=== PATIENT | female | born 1965 | race Two or more races ===

== ENCOUNTER 2020-07-18 21:57 | Emergency (ER) | payer OTHER ==
[~2020-07-18] VITALS: Ht 157.5 cm; Wt 57.0 kg
[2020-07-18 22:27] VITALS: BP 150/80
--- NOTE | 2020-07-18 22:30 | NUR ---
Provider at bedside to discuss POC
--- NOTE | 2020-07-18 22:38 | NUR ---
Pt arrived with complaints of lower ab pain, foul smelling urine, and buring with urniation. Pt ambulatory with steay gait to bathroom for UA, UA clear with strong oder. Family member at bedside, pt connected to BP and O2 monitiors, SHAGUFTA RANDALL.
[2020-07-18 22:39] LABS: MICROSCOPIC NOT IND
== END 2020-07-18 23:21 | disposition home or self-care (01) ==
LOC: ED 22:27
DX: R10.31 Right lower quadrant pain (principal); R30.0 Dysuria; Z72.9 Problem related to lifestyle, unspecified; E03.9 Hypothyroidism, unspecified
CPT/HCPCS: 81003; 99283